=== PATIENT | female | born 1960 | race Caucasian/White ===

== ENCOUNTER 2017-02-21 08:42 | Observation (INO) ==
[2017-02-21] MEDS ORDERED: Naloxone 0.4 MG/ML INJ IVP PRN (14:10)
[2017-02-21] MEDS ORDERED: *HR* HYDROcodone/Acet 5/325 mg TABLET PO PRN (14:10)
[2017-02-21 14:26] LABS: Basophils % 0.3 %; Eosinophils % 0.7 %; Hematocrit 33.6 % (35.3-44.9); Hemoglobin 10.7 g/dL (11.5-15.4); Immature Granulocytes % 0.2 % (0-4); Lymphocytes # 2.7 K/mcL (0.6-4.6); Lymphocytes % 45.4 %; Mean Corpuscular HGB Conc 31.8 g/dL (31.6-35.5); Mean Corpuscular Hemoglobin 31.5 pg (28.0-33.3); Mean Corpuscular Volume 98.8 fL (83.0-100.0); Mean Platelet Volume 8.7 fL (9.4-12.4); Monocytes # 0.6 K/mcL (0.0-1.3); Monocytes % 10.2 %; Neutrophils # 2.6 K/mcL (1.6-8.9); Platelet Count 274 K/mcL (140-400); Red Cell Distribution Width 13.5 % (11.5-14.5); Segmented Neutrophils % 43.2 %
[2017-02-21] MEDS ORDERED: *HR* Adenosine 6 MG/2 ML VIAL IVP PRN (14:33)
--- NOTE | 2017-02-21 14:42 | Internal Med History&Physical ---
Date of Encounter: 02/21/17 Time of Encounter: 13:00 Assessment and Plan (1) SVT (supraventricular tachycardia) Current visit: Yes Status: Acute Acute on chronic SVTs. Pt. reports incidence x4 yesterday followed by incident at 5:20 a.m. this morning. Took 1/2 digoxin which pt. states did not help. Went to [facility] and given adenosine which resolved sx. Pt. d/t have ablation at [facility] on Wednesday w/Dr. Duque. Cardiology consult ordered and discussed w/Dr. Santana w/recommendation to continue pts. digoxin and add adenosine PRN. I appreciate the consult. Continuous cardiac telemetry. Troponins to be trended. Monitor pt. and f/u labs. Pt. discussed w/Dr. De La Vega who is in agreement w/plan of care. Pt. is at high risk for cardiac event d/t SVTs and risk factors of current tobacco abuse. Observation. (2) Cough with fever Current visit: Yes Status: Acute Acute cough for the past week. Pt. reports fever of 99.7F at [facility] this morning. Pt. reports yellow sputum production. 2-View CXR ordered. Will continue pts. amoxicillin from previous bronchitis dx. Sputum culture. RVP ordered. Rapid influenza A&B ordered. If flu +, then will administer Tamiflu. Monitor pt. and f/u labs. (3) Fibromyalgia Current visit: Yes Status: Chronic Hx of chronic fibromyalgia. Stair-step pain medications for pain mgmt. (4) History of meningioma of the brain Current visit: Yes Status: Chronic Hx of chronic meningioma of the brain. MRI of the brain and internal auditory canals with and without contrast on 01/18/17 showed homogenously enhancing mass in the right cerebellopontine angle. This was described in history for this examination however there are no images for comparison. This may represent a meningioma. However given the slight extension into the internal auditory canal , an acoustic neuroma as possible. Pt. reports she will f/u w/brain surgeon regarding dx but wants to resolve SVTs first. (5) Thyroid disease Current visit: Yes Status: Chronic Hx of chronic thyroid disease. TSH and Free T4 thyroxine ordered. Continue patient's Synthroid. (6) DVT prophylaxis Current visit: Yes Status: Acute Bilateral SCDs on pts. LEs for DVT prophylaxis d/t planned ablation procedure. Internal Medicine - H&P: HPI Chief complaint: Supraventricular tachycardia Admitted From: Hospital to Hospital Transfer Plans for Post Hospital Care: Home History of present illness: Ms. Nunez is a 57 year old female with medical hx of fibromyalgia, thyroid disease, and meningioma of the brain presents from [facility] with chief complaint of supraventricular tachycardia the patient reports having 4 episodes yesterday and another one this morning at 5:20 AM. Patient reports she took 1/2 digoxin which did not help. Patient is scheduled to have ablation on Wednesday with Dr. Duque at [facility]. Patient reports fever of 99.7F today at [place] and cough for the past week. Pt. also reports dizziness for the past month which she states is either d/t her hypotension or meningioma of the brain. Pt. reports fever, cough, SOB, and heart palpitations but denies recent illness, chills, nausea, vomiting, changes in vision, chest pain, headache, unusual bleeding, abdominal pain, diarrhea, constipation pre-syncope, or syncope. Past Med Surg Social Fam HX - Past Medical History Source: patient, old records reviewed, obtained from family Medical history: fibromyalgia, other (Meningioma of the brain) Psychiatric history: no psych history - Social History Smoking Status: Current every day smoker Packs per day: 1/2 - 1 PPD Alcohol use: none Drug use: none Current living situation: Home, With Family Activity Level: Independent ambulation Recent Out of Country Travel Within the Last 8 Weeks: No Exposure or Possible Exposure to Illness During Travel: No - Family History Father Race: Family Member Ethnicity: Non- Living Status: Still Living Hx Family Medical Disorders: No Mother Race: Family Member Ethnicity: Non- Living Status: Still Living Hx Family Medical Disorders: No Brother Race: Family Member Ethnicity: Non- Living Status: Still Living Hx Family Medical Disorders: No Grandmother Race: Family Member Ethnicity: Non- Living Status: Cause of : Lung cancer Hx Family Cardiac Disorders: Yes ([place]) Hx Family Cancer: Yes (Lung) Grandfather Race: Family Member Ethnicity: Non- Living Status: Cause of : Lung cancer Hx Family Cardiac Disorders: Yes ([place]) Hx Family Cancer: Yes (Lung) Internal Medicine - H&P: Meds Amoxicillin [Amoxil] 500 mg PO QID 02/21/17 [History] Digoxin [Lanoxin] 0.1875 mg PO DAILY 02/21/17 [History] Fluticasone Propionate Nasal [Flonase] 50 mcg NS DAILY 02/21/17 [History] Levothyroxine Sodium [Levo-T] 50 mcg PO DAILY 02/21/17 [History] 3 Allergy/AdvReac Type Severity Reaction Status Date / Time Amoxicillin [From Augmentin] Allergy Unknown See Verified 02/21/17 14:09 Comments cefuroxime [From Ceftin] Allergy Unknown See Verified 02/21/17 14:09 Comments clavulanic acid Allergy Unknown See Verified 02/21/17 14:09 [From Augmentin] Comments ibuprofen [From Motrin] Allergy Unknown See Verified 02/21/17 14:09 Comments moxifloxacin [From Avelox] Allergy Unknown See Verified 02/21/17 14:09 Comments chlordiazepoxide Allergy Difficulty Verified 01/18/17 19:52 [From Librium] Breathing epinephrine Allergy Palpitation Verified 01/18/17 19:52 s All Systems PM: A 10-system review of systems was performed and is negative for pertinent findings except as documented above in the HPI. - Constitutional Constitutional: as per HPI, fever(s) (99.7F at [facility] today), no chills, no night sweats - EENT Eyes: no change in vision, no discharge, no pain, no photophobia Ears: no ear discharge, no ear pain, no tinnitus Nose, mouth and throat: no dysphagia, no nasal discharge, no neck pain, no sore throat - Breasts Breasts: as per HPI - Cardiovascular Cardiovascular ROS IM: as per HPI, dyspnea, palpitations - Respiratory Respiratory: as per HPI, cough, dyspnea, change in phlegm color (Yellow), no wheezing, no excessive phlegm production - Gastrointestinal Gastrointestinal: no abdominal pain, no diarrhea, no hematemesis, no hematochezia, no melena, no nausea, no vomiting - Genitourinary Genitourinary: no change in urinary stream, no dysuria, no flank pain, no hematuria Menstruation: as per HPI - Musculoskeletal Musculoskeletal ROS IM: as per HPI, myalgias - Integumentary Integumentary IM: no rash, no unusual bruising - Neurological Neurological ROS: no confusion, no convulsions, no focal weakness, no numbness, no tingling, no tremor(s) - Psychiatric Psychiatric: as per HPI - Endocrine Endocrine IM: as per HPI - Hematologic/Lymphatic Hematologic/Lymphatic: no easy bruising - Allergic/Immunologic Allergic/Immunologic: as per HPI - Constitutional Vitals: Temp Pulse Resp BP Pulse Ox 97.9 F 81 16 99/64 99 02/21/17 11:22 02/21/17 11:22 02/21/17 11:22 02/21/17 11:22 02/21/17 11:22 General appearance: Present: cooperative, mild distress (D/t coughing), A&O X 3 , pleasant, answers questions appropriately - Head Head exam: Present: atraumatic, normocephalic - Eye Eye exam: Present: PERRL, conjuntiva pink, sclera anicteric Pupils: Present: PERRL - ENT ENT exam: Present: normal exam - Neck Neck exam general surgery: Present: normal inspection, supple, trachea midline. Absent: lymphadenopathy - Respiratory Respiratory exam: Present: CTAB. Absent: accessory muscle use, rales, rhonchi, wheezes - Cardiovascular Cardiovascular exam: Present: RRR, +S1, +S2. Absent: diastolic murmur, gallop, rubs, systolic murmur - GI/Abdominal GI/Abdominal exam: Present: normal bowel sounds, soft, no peritoneal signs. Absent: distended, tenderness - Rectal Rectal exam: Present: deferred - Additional comments: exam deferred. - Extremities Exam Extremities exam: Present: warm, radial pulses palpable and symmetrical. Absent : calf tenderness, cyanotic, pedal edema - Back Exam Back exam: Present: normal inspection - Neurological Exam Neurological exam: Present: CN II-XII intact, oriented X3, no focal deficits. Absent: pronater drift, facial droop, speech deficit - Psychiatric Psychiatric exam: Present: normal affect, normal mood - Skin Skin exam: Present: dry, intact Internal Med - H&P Results - Labs CBC & Chem 7: 02/21/17 14:18 Labs: Short CBC 02/21/17 Range/Units 14:18 WBC 5.9 (4.3-11.1) K/mcL Hgb 10.7 L (11.5-15.4) g/dL Hct 33.6 L (35.3-44.9) % Plt Count 274 (140-400) K/mcL Neutrophils # 2.6 (1.6-8.9) K/mcL - EKG Data EKG shows normal: sinus rhythm - EKG Data Prior EKG available for review: yes EKG comments: 02/21/17 14:48 EKG dated 02/21/17 06:52 at [facility] today shows supraventricular tachycardia and marked ST abnormality, possible inferior subendocardial injury. EKG dated 02/21/17 08:35 at [facility] today shows sinus rhythm with fusion complexes.
[2017-02-21 14:46] LABS: Alanine Aminotransferase 17 Units/L (7-52); Albumin 3.7 g/dL (3.5-5.7); Albumin/Globulin Ratio 1.8 (1.1-2.2); Alkaline Phosphatase 49 Units/L (34-104); Aspartate Amino Transferase 20 Units/L (13-39); BUN/Creatinine Ratio 14 (6-26); Bilirubin,Total 0.3 mg/dL (0.3-1.0); Blood Urea Nitrogen 8 mg/dL (6-20); Calcium 8.6 mg/dL (8.6-10.3); Carbon Dioxide 26 mEq/L (23-29); Chloride 110 mEq/L (98-107); Globulin 2.1 g/dL (2.4-3.5); Glucose 92 mg/dL (70-105); Osmolality,Calculated 288 (280-300); Sodium 140 mEq/L (136-145); Total Protein 5.8 g/dL (6.4-8.9); eGFR For African Americans > 60 (> 60); eGFR For Non-African Americans > 60 (> 60)
[2017-02-21 14:59] LABS: Thyroid Stimulating Hormone 1.092 mcIU/mL (0.340-5.600)
[2017-02-21] MEDS: Acetaminophen 325 MG TABLET PO PRN (15:37)
[2017-02-21] MEDS: Amoxicillin 500 MG CAPSULE PO SCH ×2 (15:37→20:47)
--- NOTE | 2017-02-21 16:05 | Event Note ---
Date of Encounter: 02/21/17 Time of Encounter: 16:03 Patient seen and examined.Recurrent SVT resolved with adensine. Takend off her Cartia in December in anticipation for ablation. Plan for abation procedure on Wednesday after tomorrow. Can give adenosine as need for SVT in hospital. K 4, will check Mg. 2 sets of troponin, check TSH
[2017-02-21] MEDS ORDERED: 0.9 % Sodium Chloride 1,000 ML ONE (16:33)
[2017-02-22 02:59] LABS: Hematocrit 33.6 % (35.3-44.9); Hemoglobin 10.8 g/dL (11.5-15.4); Mean Corpuscular HGB Conc 32.1 g/dL (31.6-35.5); Mean Corpuscular Hemoglobin 31.5 pg (28.0-33.3); Mean Platelet Volume 8.7 fL (9.4-12.4); Platelet Count 264 K/mcL (140-400); Red Blood Count 3.43 M/mcL (3.82-4.97); Red Cell Distribution Width 13.7 % (11.5-14.5)
[2017-02-22 03:04] LABS: Hemoglobin A1C 5.3 %
[2017-02-22 03:09] LABS: Alanine Aminotransferase 19 Units/L (7-52); Albumin 3.8 g/dL (3.5-5.7); Albumin/Globulin Ratio 1.8 (1.1-2.2); Alkaline Phosphatase 46 Units/L (34-104); Aspartate Amino Transferase 20 Units/L (13-39); BUN/Creatinine Ratio 16 (6-26); Bilirubin,Total 0.4 mg/dL (0.3-1.0); Blood Urea Nitrogen 8 mg/dL (6-20); Calcium 8.8 mg/dL (8.6-10.3); Carbon Dioxide 27 mEq/L (23-29); Chloride 111 mEq/L (98-107); Chol/HDL Ratio 3.3 (0-4.9); Cholesterol 159 mg/dL (< 200); Globulin 2.1 g/dL (2.4-3.5); Glucose 91 mg/dL (70-105); HDL Cholesterol 48 mg/dL (40-59); LDL Cholesterol,Calculated 94 mg/dL (0-99); Magnesium 2.1 mg/dL (1.6-2.6); Osmolality,Calculated 288 (280-300); Potassium 4.1 mEq/L (3.5-5.1); Sodium 140 mEq/L (136-145); Total Protein 5.9 g/dL (6.4-8.9); Triglycerides 87 mg/dL (< 150); eGFR For African Americans > 60 (> 60); eGFR For Non-African Americans > 60 (> 60)
[2017-02-22] MEDS: 0.9 % Sodium Chloride 1,000 ML IVC SCH ×2 (04:10→08:34)
[2017-02-22] MEDS: Amoxicillin 500 MG CAPSULE PO SCH ×3 (08:32→16:50)
[2017-02-22] MEDS: Acetaminophen 325 MG TABLET PO PRN ×2 (08:32→19:37)
[2017-02-22] MEDS ORDERED: *HR* Digoxin 0.125 MG TABLET PO SCH (09:00)
--- NOTE | 2017-02-22 09:35 | Electrophysiology Consult Note ---
<Ellie Palacio [place] - Last Filed: 02/22/17 10:43> Date of Encounter: 02/22/17 Time of Encounter: 08:00 Assessment and Plan (1) SVT (supraventricular tachycardia) Current Visit: Yes Status: Acute Successful conversion from SVT to SR after IV adenosine given at [facility]. No recurrence since admission per telemetry review. NPO after MN except medications. Plan for SVT ablation tomorrow with Dr. Jovi Duque as previously scheduled. Continue digoxin and prn adenosine. Discussion w patient/family: The assessment and plan as outlined above was discussed with the patient and/or family members who expressed understanding and agreement. All questions were answered. Thank you for involving us in the care of your patient. Please call with any questions. The patient will be discussed and reviewed with Dr. Jovi Duque, changes to be made accordingly. History of Present Illness Consult date: 02/23/16 Requesting physician: Jb De La Vega Consult reason: SVT Chief complaint: SVT attack History of present illness: Ms. Nunez is a 57 year old female with PMHx significant for SVT and thyroid disease who presented to [facility] yesterday morning with complaints of "SVT attack." Patient reports she first noticed symptoms--palpitations, racing heart around 5:30 AM, tachycardia continued to persist despite vagal maneuvers, carotid massage, and 1/2 digoxin dose and therefore presented to the ED. Of note , she has outpatient SVT ablation scheduled for 02/23/17 and was directed to discontinue home cardizem in December. She was given IV adenosine push for SVT (HR 197 per ECG) at [facility] and then transferred to [facility]. Patient was started on oral amoxicillin 1 week ago for cough, had low grade temp at [facility], 99.7. Has been afebrile for >24 hours. Past Med Surg Social Fam HX - Past Medical History Attestation: Yes The following information was validated with the patient. Source: patient Medical history: fibromyalgia, SVT, thyroid disease, other (Meningioma of the brain) Psychiatric history: no psych history - Social History Smoking Status: Current every day smoker Packs per day: 1/2 - 1 PPD Alcohol use: none Drug use: none - Family History Father Race: Family Member Ethnicity: Non- Living Status: Still Living Hx Family Medical Disorders: No Mother Race: Family Member Ethnicity: Non- Living Status: Still Living Hx Family Medical Disorders: No Brother Race: Family Member Ethnicity: Non- Living Status: Still Living Hx Family Medical Disorders: No Grandmother Race: Family Member Ethnicity: Non- Living Status: Cause of : Lung cancer Hx Family Cardiac Disorders: Yes ([place]) Hx Family Cancer: Yes (Lung) Grandfather Race: Family Member Ethnicity: Non- Living Status: Cause of : Lung cancer Hx Family Cardiac Disorders: Yes ([place]) Hx Family Cancer: Yes (Lung) Medications and Allergies Amoxicillin [Amoxil] 500 mg PO QID 02/21/17 [History] Digoxin [Lanoxin] 0.1875 mg PO DAILY 02/21/17 [History] Fluticasone Propionate Nasal [Flonase] 50 mcg NS DAILY 02/21/17 [History] Levothyroxine Sodium [Levo-T] 50 mcg PO DAILY 02/21/17 [History] 3 Allergy/AdvReac Type Severity Reaction Status Date / Time cefuroxime [From Ceftin] Allergy Unknown See Verified 02/21/17 14:09 Comments clavulanic acid Allergy Unknown See Verified 02/21/17 14:09 [From Augmentin] Comments ibuprofen [From Motrin] Allergy Unknown See Verified 02/21/17 14:09 Comments moxifloxacin [From Avelox] Allergy Unknown See Verified 02/21/17 14:09 Comments chlordiazepoxide Allergy Difficulty Verified 01/18/17 19:52 [From Librium] Breathing epinephrine Allergy Palpitation Verified 01/18/17 19:52 s All Systems Review: A 10-system review of systems was performed and is negative for pertinent findings except as documented above in the HPI. - Cardiovascular Cardiovascular: as per HPI Physical Examination Vital Signs, Last 4 Hours Temp Pulse Resp BP Pulse Ox 02/22/17 07:25 97.4 F L 86 16 101/65 95 General: Conversant, No Apparent Distress HEENT: Atraumatic, Normocephaly, Mucus Membranes Moist Neck: No JVD Cardiac: Reg Rate and Rhythm, Normal S1 and S2 Lungs: Normal Breath Sounds Neuro: Alert and responsive Abdomen: Soft Skin: No rashes noted on visualized skin Musculoskeletal: No Chest Wall Tenderness Extremities: No Edema, Normal Pulses Results 02/22/17 02:47 02/22/17 02:47 Lab Results 02/21/17 02/21/17 02/21/17 14:18 14:18 14:18 WBC 5.9 Hgb 10.7 L Hct 33.6 L Plt Count 274 Sodium 140 Potassium 4.0 Chloride 110 H Carbon Dioxide 26 BUN 8 Creatinine 0.56 L Glucose 92 Calcium 8.6 Magnesium Total Bilirubin 0.3 AST 20 ALT 17 Alkaline Phosphatase 49 Troponin I < 0.03 TSH 1.092 02/21/17 02/21/17 02/22/17 14:18 20:32 02:47 WBC Hgb Hct Plt Count Sodium Potassium Chloride Carbon Dioxide BUN Creatinine Glucose Calcium Magnesium 2.0 Total Bilirubin AST ALT Alkaline Phosphatase Troponin I < 0.03 < 0.03 TSH 02/22/17 02/22/17 02:47 02:47 WBC 6.2 Hgb 10.8 L Hct 33.6 L Plt Count 264 Sodium 140 Potassium 4.1 Chloride 111 H Carbon Dioxide 27 BUN 8 Creatinine 0.49 L Glucose 91 Calcium 8.8 Magnesium 2.1 Total Bilirubin 0.4 AST 20 ALT 19 Alkaline Phosphatase 46 Troponin I TSH Active Medications Acetaminophen (Tylenol) 650 mg PO Q6H PRN PRN Reason: Mild Pain (1-3) Stop: 08/23/17 14:11 Last Admin: 02/22/17 08:32 Dose: 650 mg Hydrocodone Bitart/Acetaminophen ([place] 5-325 Mg) 1 tab PO Q4H PRN PRN Reason: Moderate Pain (4-6) Stop: 08/23/17 14:11 Adenosine (Adenocard) 6 mg IVP ONCE PRN PRN Reason: Tachyarrhythmias Stop: 08/23/17 14:34 Amoxicillin (Amoxil) 500 mg PO QID [facility] PRN Reason: Protocol Stop: 08/23/17 17:01 Last Admin: 02/22/17 08:32 Dose: 500 mg Digoxin (Lanoxin) 0.1875 mg PO DAILY [facility] Stop: 08/24/17 09:01 Last Admin: 02/22/17 08:32 Dose: Not Given Fluticasone Propionate (Flonase) 50 mcg NS DAILY [facility] PRN Reason: Protocol Stop: 08/24/17 09:01 Sodium Chloride (0.9 % Sodium Chloride) 1,000 mls @ 60 mls/hr IVC .[id number] [facility] Stop: 08/23/17 17:01 Last Admin: 02/22/17 08:34 Dose: 60 mls/hr Levothyroxine Sodium (Synthroid) 50 mcg PO DAILY@0630 [facility] Stop: 08/25/17 06:31 Naloxone HCl (Narcan) 0.4 mg IVP Q2MIN PRN PRN Reason: Opioid Reversal Stop: 08/23/17 14:11 - Imaging and Cardiology Other Results: 12 hour tele: avg HR=88 SR. NO SVT noted. - EKG Interpretation EKG results cardiology: personally reviewed Consult Discharge Plan - Plan Referrals: Viktoriya John, COMMUNICATIONS ELECTRICIAN SUPERVISOR [Primary Care Provider] - <Jovi Duque - Last Filed: 02/22/17 12:56> Date of Encounter: 02/22/17 - Attending Attestation I have personally performed a face to face evaluation on this patient. I have reviewed and agree with the care plan. History and Exam by me shows: Recurrent SVT, proceed with EPS/ Ablation as scheduled tomorrow. Assessment and Plan Discussion w patient/family: The assessment and plan as outlined above was discussed with the patient and/or family members who expressed understanding and agreement. All questions were answered. Thank you for involving us in the care of your patient. Please call with any questions. History of Present Illness History of present illness: Ms. Nunez is a 57 year old female All Systems Review: A 10-system review of systems was performed and is negative for pertinent findings except as documented above in the HPI. Physical Examination Vital Signs, Last 4 Hours Temp Pulse Resp BP Pulse Ox 02/22/17 11:18 98.1 F 93 17 94/51 94 Results 02/22/17 02:47 02/22/17 02:47 Lab Results 02/21/17 02/21/17 02/21/17 14:18 14:18 14:18 WBC 5.9 Hgb 10.7 L Hct 33.6 L Plt Count 274 Sodium 140 Potassium 4.0 Chloride 110 H Carbon Dioxide 26 BUN 8 Creatinine 0.56 L Glucose 92 Calcium 8.6 Magnesium Total Bilirubin 0.3 AST 20 ALT 17 Alkaline Phosphatase 49 Troponin I < 0.03 TSH 1.092 02/21/17 02/21/17 02/22/17 14:18 20:32 02:47 WBC Hgb Hct Plt Count Sodium Potassium Chloride Carbon Dioxide BUN Creatinine Glucose Calcium Magnesium 2.0 Total Bilirubin AST ALT Alkaline Phosphatase Troponin I < 0.03 < 0.03 TSH 02/22/17 02/22/17 02:47 02:47 WBC 6.2 Hgb 10.8 L Hct 33.6 L Plt Count 264 Sodium 140 Potassium 4.1 Chloride 111 H Carbon Dioxide 27 BUN 8 Creatinine 0.49 L Glucose 91 Calcium 8.8 Magnesium 2.1 Total Bilirubin 0.4 AST 20 ALT 19 Alkaline Phosphatase 46 Troponin I TSH
[2017-02-22] MEDS: Fluticasone Propionate Nasal 50 MCG/SPRAY BOTTLE NS SCH (14:09)
[2017-02-22] MEDS ORDERED: Amoxicillin 500 MG CAPSULE PO SCH (15:00)
--- NOTE | 2017-02-22 18:07 | Internal Med Progress Note ---
Date of Encounter: 02/22/17 Time of Encounter: 18:07 - Assessment and plan (1) SVT (supraventricular tachycardia) Current Visit: Yes Status: Acute Assessment and plan: Known to have SVT. Scheduled for ablation procedure tomorrow with Dr. Jovi Duque We will follow the recommendation from Dr. Jovi Duque (2) Fibromyalgia Current Visit: Yes Status: Chronic Assessment and plan: stable (3) Thyroid disease Current Visit: Yes Status: Chronic Assessment and plan: stable (4) DVT prophylaxis Current Visit: Yes Status: Acute - Subjective Interval history: Patient seen and examined. Chart reviewed. patient is comfortably lying in bed. Patient denies any palpitations, chest pain, nausea, vomiting, dizziness or diarrhea. - Constitutional Vitals: Temp Pulse Resp BP Pulse Ox 98.3 F 85 16 99/55 97 02/22/17 15:56 02/22/17 15:56 02/22/17 15:56 02/22/17 15:56 02/22/17 15:56 General appearance: Present: cooperative, mild distress (D/t coughing), A&O X 3 , pleasant, answers questions appropriately - Head Head exam: Present: atraumatic, normocephalic - Eye Eye exam: Present: PERRL, conjuntiva pink, sclera anicteric Pupils: Present: PERRL - Neck Neck exam general surgery: Present: supple, trachea midline. Absent: lymphadenopathy - Respiratory Respiratory exam: Present: CTAB. Absent: accessory muscle use, rales, rhonchi, wheezes - Cardiovascular Cardiovascular exam: Present: RRR, +S1, +S2. Absent: diastolic murmur, gallop, rubs, systolic murmur - GI/Abdominal GI/Abdominal exam: Present: normal bowel sounds, soft, no peritoneal signs. Absent: distended, tenderness - Extremities Exam Extremities exam: Present: warm, radial pulses palpable and symmetrical. Absent : calf tenderness, cyanotic, pedal edema - Neurological Exam Neurological exam: Present: CN II-XII intact, oriented X3, no focal deficits. Absent: pronater drift, facial droop, speech deficit - Skin Skin exam: Present: dry, intact Internal Medicine: Result - Labs CBC & Chem 7: 02/22/17 02:47 02/22/17 02:47 Labs: Short CBC 02/22/17 Range/Units 02:47 WBC 6.2 (4.3-11.1) K/mcL Hgb 10.8 L (11.5-15.4) g/dL Hct 33.6 L (35.3-44.9) % Plt Count 264 (140-400) K/mcL BMP 02/22/17 02:47 Sodium 140 Potassium 4.1 Chloride 111 H Carbon Dioxide 27 BUN 8 Creatinine 0.49 L Glucose 91 Calcium 8.8 Cardiac Enzymes 02/21/17 02/21/17 02/22/17 Range/Units 14:18 20:32 02:47 Troponin I < 0.03 < 0.03 < 0.03 (< 0.04) ng/mL Liver Function 02/22/17 Range/Units 02:47 Total Bilirubin 0.4 (0.3-1.0) mg/dL AST 20 (13-39) Units/L ALT 19 (7-52) Units/L Alkaline Phosphatase 46 (34-104) Units/L Albumin 3.8 (3.5-5.7) g/dL Consult Discharge Plan - Plan Referrals: Viktoriya John, FUNERAL PRE ARRANGEMENT COUNSELOR [Primary Care Provider] -
[2017-02-23 07:11] LABS: Hemoglobin 10.7 g/dL (11.5-15.4); Mean Corpuscular HGB Conc 32.4 g/dL (31.6-35.5); Mean Corpuscular Hemoglobin 31.8 pg (28.0-33.3); Mean Corpuscular Volume 98.2 fL (83.0-100.0); Platelet Count 280 K/mcL (140-400); Red Blood Count 3.36 M/mcL (3.82-4.97); Red Cell Distribution Width 13.2 % (11.5-14.5)
[2017-02-23] MEDS: Amoxicillin 500 MG CAPSULE PO SCH ×2 (07:53→16:35)
[2017-02-23] MEDS: Fluticasone Propionate Nasal 50 MCG/SPRAY BOTTLE NS SCH (07:55)
[2017-02-23] MEDS: Acetaminophen 325 MG TABLET PO PRN ×2 (07:55→16:35)
--- NOTE | 2017-02-23 09:01 | Event Note ---
Date of Encounter: 02/23/17 Time of Encounter: 09:00 - Cardiology Event Note Laboratory Tests 02/21/17 02/21/17 02/21/17 14:18 14:18 20:32 Potassium Magnesium Troponin I < 0.03 < 0.03 TSH 1.092 02/22/17 02/22/17 02:47 02:47 Potassium 4.1 Magnesium 2.1 Troponin I < 0.03 TSH Active Medications Acetaminophen (Tylenol) 650 mg PO Q6H PRN PRN Reason: Mild Pain (1-3) Stop: 08/23/17 14:11 Last Admin: 02/23/17 07:55 Dose: 650 mg Hydrocodone Bitart/Acetaminophen ([place] 5-325 Mg) 1 tab PO Q4H PRN PRN Reason: Moderate Pain (4-6) Stop: 08/23/17 14:11 Adenosine (Adenocard) 6 mg IVP ONCE PRN PRN Reason: Tachyarrhythmias Stop: 08/23/17 14:34 Amoxicillin (Amoxil) 500 mg PO TIDWM [facility] PRN Reason: Protocol Stop: 02/26/17 12:01 Last Admin: 02/23/17 07:53 Dose: Not Given Fluticasone Propionate (Flonase) 50 mcg NS DAILY [facility] PRN Reason: Protocol Stop: 08/24/17 09:01 Last Admin: 02/23/17 07:55 Dose: 50 mcg Levothyroxine Sodium (Synthroid) 50 mcg PO DAILY@0630 [facility] Stop: 08/25/17 06:31 Last Admin: 02/23/17 05:54 Dose: 50 mcg Naloxone HCl (Narcan) 0.4 mg IVP Q2MIN PRN PRN Reason: Opioid Reversal Stop: 08/23/17 14:11 Telemetry reviewed with average heart rate 81, no recurrent SVT noted. For SVT ablation today. All questions answered.
[2017-02-23 09:45] LABS: Alanine Aminotransferase 15 Units/L (7-52); Albumin 3.5 g/dL (3.5-5.7); Albumin/Globulin Ratio 1.7 (1.1-2.2); Alkaline Phosphatase 52 Units/L (34-104); Aspartate Amino Transferase 16 Units/L (13-39); BUN/Creatinine Ratio 23 (6-26); Bilirubin,Total 0.2 mg/dL (0.3-1.0); Blood Urea Nitrogen 10 mg/dL (6-20); Calcium 8.5 mg/dL (8.6-10.3); Carbon Dioxide 24 mEq/L (23-29); Chloride 111 mEq/L (98-107); Globulin 2.1 g/dL (2.4-3.5); Glucose 95 mg/dL (70-105); Osmolality,Calculated 291 (280-300); Sodium 141 mEq/L (136-145); Total Protein 5.6 g/dL (6.4-8.9); eGFR For African Americans > 60 (> 60); eGFR For Non-African Americans > 60 (> 60)
[2017-02-23] MEDS ORDERED: Heparin 1,000 UNITS/500 mL 500 ML ONE (12:45)
[2017-02-23] MEDS ORDERED: *HR* FentaNYL (PF) 100 MCG/2 ML VIAL ONE (13:36)
[2017-02-23] MEDS ORDERED: 0.9 % Sodium Chloride 1,000 ML ONE (13:37)
[2017-02-23] MEDS ORDERED: *HR* Midazolam HCl 5 MG/5 ML VIAL IVP ONE (13:37)
[2017-02-23] MEDS ORDERED: Isoproterenol HCl 1 MG/5 ML AMPUL ONE (14:41)
[2017-02-23] MEDS ORDERED: D5% in Water 250 ML ONE (14:41)
[2017-02-23] MEDS ORDERED: Naloxone 0.4 MG/ML INJ IVP PRN (15:14)
--- NOTE | 2017-02-23 16:14 | Event Note ---
Date of Encounter: 02/23/17 Time of Encounter: 16:00 - Cardiology Event Note Per discussion with Dr. Jovi Duque, s/p ablation with success. Cardiology will s/o, re-consult PRN. F/u arranged. Ok to dc this pm if post groin checks ok. All questions answered. Education provided regarding post procedure care and activity. Patient and family verbalized understanding and agreed with plan.
--- NOTE | 2017-02-23 16:15 | Internal Med Progress Note ---
<Luigi Jeffery - Last Filed: 02/23/17 16:18> Date of Encounter: 02/23/17 Time of Encounter: 16:12 - Assessment and plan (1) SVT (supraventricular tachycardia) Current Visit: Yes Status: Acute Assessment and plan: Patient undergoes SVT ablation today. Continue telemetry. Currently not on any medical therapy for SVT as it has caused hypotension in the past with syncope. (2) Cough with fever Current Visit: Yes Status: Acute Assessment and plan: Patient was started on antibiotics for symptoms of cough with fever last Wednesday. She is being treated with amoxicillin for this. She has been afebrile with normal WBC. Continue amoxicillin for total 7 days. (3) Thyroid disease Current Visit: Yes Status: Chronic Assessment and plan: stable. tsh WNL continue levothyroxine (4) DVT prophylaxis Current Visit: Yes Status: Acute Assessment and plan: Heparin subcutaneous - Subjective Interval history: Patient denies any overnight acute events. Continues to have cough, yellow sputum. Reports mild headache and sinus congestion. She denies chest pain, palpitations, shortness of breath, abdominal pain, nausea, lower extremity swelling, extremity pain. - Constitutional Vitals: Temp Pulse Resp BP Pulse Ox 98.0 F 75 17 95/85 97 02/23/17 12:01 02/23/17 12:01 02/23/17 12:01 02/23/17 12:01 02/23/17 12:01 General appearance: Present: cooperative, mild distress (D/t coughing), A&O X 3 , pleasant, answers questions appropriately - Head Head exam: Present: atraumatic, normocephalic - Eye Eye exam: Present: PERRL, conjuntiva pink, sclera anicteric - Neck Neck exam general surgery: Present: supple, trachea midline. Absent: lymphadenopathy - Respiratory Respiratory exam: Present: CTAB. Absent: accessory muscle use, rales, rhonchi, wheezes - Cardiovascular Cardiovascular exam: Present: RRR, +S1, +S2. Absent: diastolic murmur, gallop, rubs, systolic murmur - GI/Abdominal GI/Abdominal exam: Present: normal bowel sounds, soft, no peritoneal signs. Absent: distended, tenderness - Extremities Exam Extremities exam: Present: warm, radial pulses palpable and symmetrical. Absent : calf tenderness, cyanotic, pedal edema - Neurological Exam Neurological exam: Present: CN II-XII intact, oriented X3, no focal deficits. Absent: pronater drift, facial droop, speech deficit - Skin Skin exam: Present: dry, intact Internal Medicine: Result - Labs CBC & Chem 7: 02/23/17 06:32 02/23/17 06:32 Labs: Short CBC 02/23/17 Range/Units 06:32 WBC 6.4 (4.3-11.1) K/mcL Hgb 10.7 L (11.5-15.4) g/dL Hct 33.0 L (35.3-44.9) % Plt Count 280 (140-400) K/mcL BMP 02/23/17 06:32 Sodium 141 Potassium 4.0 Chloride 111 H Carbon Dioxide 24 BUN 10 Creatinine 0.44 L Glucose 95 Calcium 8.5 L Liver Function 02/23/17 Range/Units 06:32 Total Bilirubin 0.2 L (0.3-1.0) mg/dL AST 16 (13-39) Units/L ALT 15 (7-52) Units/L Alkaline Phosphatase 52 (34-104) Units/L Albumin 3.5 (3.5-5.7) g/dL Consult Discharge Plan - Plan Referrals: Viktoriya John, [facility] [Primary Care Provider] - <Ruy Puri - Last Filed: 02/23/17 16:44> Date of Encounter: 02/23/17 - Constitutional Vitals: Temp Pulse Resp BP Pulse Ox 98.0 F 75 17 95/85 97 02/23/17 12:01 02/23/17 12:01 02/23/17 12:01 02/23/17 12:01 02/23/17 12:01 Internal Medicine: Result - Labs CBC & Chem 7: 02/23/17 06:32 02/23/17 06:32 Labs: Short CBC 02/23/17 Range/Units 06:32 WBC 6.4 (4.3-11.1) K/mcL Hgb 10.7 L (11.5-15.4) g/dL Hct 33.0 L (35.3-44.9) % Plt Count 280 (140-400) K/mcL BMP 02/23/17 06:32 Sodium 141 Potassium 4.0 Chloride 111 H Carbon Dioxide 24 BUN 10 Creatinine 0.44 L Glucose 95 Calcium 8.5 L Liver Function 02/23/17 Range/Units 06:32 Total Bilirubin 0.2 L (0.3-1.0) mg/dL AST 16 (13-39) Units/L ALT 15 (7-52) Units/L Alkaline Phosphatase 52 (34-104) Units/L Albumin 3.5 (3.5-5.7) g/dL - Attending Attestation I examined this patient and my medical decision-making was reviewed with the Resident Physician on 02/23/17. I agree with the documented findings, disposition and treatment plan as described except to the extent set forth below. 57 F with Hypothyroidism, admitted to observation for ablation of SVT She is asymptomatic, no CP, no SOB No new complains Awaiting procedure Physical exam unremarkable, labs are stable Continue current care, stable to be discharged home if cardiology clears her after the procedure, ensure follow up with cardiology Rest of details as in the resident physicians documentation.
--- NOTE | 2017-02-23 16:52 | Discharge Summary ---
<Luigi Jeffery - Last Filed: 02/23/17 16:44> Date of Encounter: 02/23/17 Time of Encounter: 16:44 - Discharge Diagnosis (1) SVT (supraventricular tachycardia) Priority: Primary Status: Acute (2) Cough with fever Priority: Secondary Status: Acute (3) Thyroid disease Priority: Secondary Status: Chronic (4) DVT prophylaxis Priority: Secondary Status: Acute - Discharge Medications Home Medications: Fluticasone Propionate Nasal [Flonase] 50 mcg NS DAILY 02/21/17 [History] Levothyroxine Sodium [Levo-T] 50 mcg PO DAILY 02/21/17 [History] Amoxicillin [Amoxil] 500 mg PO QID #0 02/23/17 [Rx] Allergies/Adverse Reactions: 3 Allergy/AdvReac Type Severity Reaction Status Date / Time cefuroxime [From Ceftin] Allergy Unknown See Verified 02/21/17 14:09 Comments clavulanic acid Allergy Unknown See Verified 02/21/17 14:09 [From Augmentin] Comments ibuprofen [From Motrin] Allergy Unknown See Verified 02/21/17 14:09 Comments moxifloxacin [From Avelox] Allergy Unknown See Verified 02/21/17 14:09 Comments chlordiazepoxide Allergy Difficulty Verified 01/18/17 19:52 [From Librium] Breathing epinephrine Allergy Palpitation Verified 01/18/17 19:52 s Procedures/tests Complete & Pending: Procedures Performed prior 72 hours Category Date Time Status CL Ablation [CL] Routine City Surveyor 02/23/17 08:00 Ordered ECG 12 lead ECG [ECG] Routine Y 02/21/17 14:10 Completed Date of admission: 02/21/17 10:53 Primary care physician: JOSE Morgan Consults: 02/21/17 14:15 Consult to Physician/Internist [CONS] Routine Reason for SW Consult: Please assess patient for possible home needs for post -discharge planning. 02/21/17 14:21 Consult to Cardiology [CONS] Routine Comment: Consulting Provider: Cardiology María Reason for Consult: Patient has hx of SVTs and was seen at [facility] today for SVTs. Given adenosine which resolved sx. Pt. is scheduled to have ablation on Wednesday w/Dr. Duque. Pt. is also showing sx of possible influenza today w/cough and fever at [place] of 99.7F. Rapid influenza A&B ordered. Call Completed: Yes Discharging clinician: Chitra Jeffery Anticipated date of discharge: 02/23/17 - Patient Status Disposition: Home, Self-Care Functional capacity at discharge: independent ambulation Overall status at discharge: patient is progressing back to baseline - Discharge Instructions Instructions: Cardiac Ablation (DC) Follow Up With: Viktoriya John CNP [Primary Care Provider] - - Diet and Activity Activity: increase activity as tolerated Diet: advance to your usual diet Hospital course: Ms. Nunez is a 57 year old female with history of SVT presented as a transfer form [facility]. Patient had a SVT attack noticed symptoms of palpitations , racing heart. Heart rate was 197 on EKG At [facility] ER patient's SVT persisted after attempts of vagal maneuvers, carotid massage, one half digoxin dose. Patient was then given IV adenosine which converted her heart rate to sinus rhythm. TSH was within normal limits. Patient used to be on verapamil and then Cardizem for her SVT which was diagnosed in 1983. These were discontinued outpatient due to hypotension with syncope. Patient underwent ablation for SVT and tolerated the procedure well. Furthermore she was started on amoxicillin outpatient for cough and fever which was continued in the hospital. Rapid influenza negative. She continued to have symptoms of cough, productive sputum and sinus congestion but they have improved since last Wednesday. Patient will need to finish her antibiotic regimen with her last dose being 02/26/2017. Patient will follow-up with cardiology and PCP after discharge. She is able to ambulate independently. - Time Spent with Patient Total time spent providing and/or coordinating discharge services: - Constitutional Vitals: Temp Pulse Resp BP Pulse Ox 98.0 F 75 17 95/85 97 02/23/17 12:01 02/23/17 12:01 02/23/17 12:01 02/23/17 12:01 02/23/17 12:01 General appearance: Present: cooperative, mild distress (D/t coughing), A&O X 3 , pleasant, answers questions appropriately - Head Head exam: Present: atraumatic, normocephalic - Eye Eye exam: Present: PERRL, conjuntiva pink, sclera anicteric Pupils: Present: PERRL - Neck Neck exam general surgery: Present: supple, trachea midline. Absent: lymphadenopathy - Respiratory Respiratory exam: Present: CTAB. Absent: accessory muscle use, rales, rhonchi, wheezes - Cardiovascular Cardiovascular exam: Present: RRR, +S1, +S2. Absent: diastolic murmur, gallop, rubs, systolic murmur Additional comments: Right groin pressure dressing at catheter site. No bleeding - GI/Abdominal GI/Abdominal exam: Present: normal bowel sounds, soft, no peritoneal signs. Absent: distended, tenderness - Extremities Exam Extremities exam: Present: warm, radial pulses palpable and symmetrical. Absent : calf tenderness, cyanotic, pedal edema - Neurological Exam Neurological exam: Present: CN II-XII intact, oriented X3, no focal deficits. Absent: pronater drift, facial droop, speech deficit - Skin Skin exam: Present: dry, intact <Ruy Puri T - Last Filed: 02/23/17 17:54> Date of Encounter: 02/23/17 Procedures/tests Complete & Pending: Procedures Performed prior 72 hours Category Date Time Status CL Ablation [CL] Routine City Surveyor 02/23/17 08:00 Ordered ECG 12 lead ECG [ECG] Routine Y 02/21/17 14:10 Completed Date of admission: 02/21/17 10:53 Primary care physician: JOSE Morgan Consults: 02/21/17 14:15 Consult to Physician/Internist [CONS] Routine Reason for SW Consult: Please assess patient for possible home needs for post -discharge planning. 02/21/17 14:21 Consult to Cardiology [CONS] Routine Comment: Consulting Provider: Cardiology María Reason for Consult: Patient has hx of SVTs and was seen at [facility] today for SVTs. Given adenosine which resolved sx. Pt. is scheduled to have ablation on Wednesday w/Dr. Duque. Pt. is also showing sx of possible influenza today w/cough and fever at [place] of 99.7F. Rapid influenza A&B ordered. Call Completed: Yes Hospital course: Ms. Nunez is a 57 year old female - Time Spent with Patient Total time spent providing and/or coordinating discharge services: - Constitutional Vitals: Temp Pulse Resp BP Pulse Ox 97.7 F 65 17 102/66 98 02/23/17 17:34 02/23/17 17:34 02/23/17 17:34 02/23/17 17:34 02/23/17 17:34 - Attending Attestation Agree with plan, see progress notes of same day for my documentation
[2017-02-23 17:35] VITALS: BP 102/66
[2017-02-23] MEDS ORDERED: *HR* Heparin 5,000 UNIT/ML VIAL SQ SCH (18:00)
== END 2017-02-23 19:00 | disposition home or self-care (01) ==
LOC: 2ANU → SUATTDRO 10:53
PROVIDERS: ADMIT Hospitalist; ATTEND Internal Medicine

== ENCOUNTER 2021-08-01 17:31 | Inpatient (IN) ==
[2021-08-01] MEDS ORDERED: Perflutren Lipid Microsphere 1.3 ML in 0.9 % Sodium Chloride 8.7 ML IVP PRN (18:02)
[2021-08-01] MEDS ORDERED: *HR* Metoprolol 5 MG/5 ML VIAL IVP PRN (18:03)
[2021-08-01] MEDS ORDERED: Melatonin 3 MG TABLET PO PRN (18:04)
[2021-08-01] MEDS ORDERED: Naloxone 0.4 MG/ML INJ IVP PRN (18:04)
[2021-08-01] MEDS ORDERED: Acetaminophen 325 MG TABLET PO PRN (18:04)
[2021-08-01] MEDS: Levalbuterol Neb 1.25 MG/3 ML IH SCH ×2 (18:38→22:23)
[2021-08-01 18:39] LABS: Basophils # 0.1 K/mcL (0.0-0.2); Basophils % 0.7 %; Eosinophils # 0.1 K/mcL (0.0-0.6); Eosinophils % 1.2 %; Hematocrit 42.6 % (35.3-44.9); Hemoglobin 13.8 g/dL (11.5-15.4); Immature Granulocytes % 0.4 % (0-4); Lymphocytes # 2.6 K/mcL (0.6-4.6); Lymphocytes % 34.2 %; Mean Corpuscular HGB Conc 32.4 g/dL (31.6-35.5); Mean Corpuscular Volume 95.7 fL (83.0-100.0); Mean Platelet Volume 8.9 fL (9.4-12.4); Monocytes # 0.8 K/mcL (0.0-1.3); Monocytes % 10.1 %; Platelet Count 386 K/mcL (140-400); Red Blood Count 4.45 M/mcL (3.82-4.97); Red Cell Distribution Width 14.4 % (11.5-14.5); Segmented Neutrophils % 53.4 %; White Blood Count 7.5 K/mcL (4.3-11.1)
[2021-08-01 18:57] LABS: Alanine Aminotransferase 15 Units/L (7-52); Albumin 4.6 g/dL (3.5-5.7); Albumin/Globulin Ratio 1.6 (1.1-2.2); Alkaline Phosphatase 61 Units/L (34-104); Aspartate Amino Transferase 19 Units/L (13-39); BUN/Creatinine Ratio 16 (6-26); Bilirubin,Total 0.5 mg/dL (0.3-1.0); Blood Urea Nitrogen 12 mg/dL (8-23); Calcium 9.8 mg/dL (8.6-10.3); Carbon Dioxide 29 mEq/L (23-29); Chloride 103 mEq/L (98-107); Globulin 2.9 g/dL (2.4-3.5); Glucose 99 mg/dL (70-105); Magnesium 2.2 mg/dL (1.6-2.6); Osmolality,Calculated 286 (280-300); Potassium 4.5 mEq/L (3.5-5.1); Sodium 138 mEq/L (136-145); Total Protein 7.5 g/dL (6.4-8.9); Troponin I < 0.03 ng/mL (< 0.04); eGFR For African Americans > 60 (> 60); eGFR For Non-African Americans > 60 (> 60)
[2021-08-01 19:10] LABS: Thyroid Stimulating Hormone 3.653 mcIU/mL (0.340-5.600)
[2021-08-02 01:38] LABS: Basophils # 0.1 K/mcL (0.0-0.2); Basophils % 0.7 %; Eosinophils # 0.1 K/mcL (0.0-0.6); Eosinophils % 1.2 %; Hematocrit 38.2 % (35.3-44.9); Hemoglobin 12.4 g/dL (11.5-15.4); Immature Granulocytes % 0.1 % (0-4); Lymphocytes # 2.8 K/mcL (0.6-4.6); Lymphocytes % 38.9 %; Mean Corpuscular HGB Conc 32.5 g/dL (31.6-35.5); Mean Corpuscular Hemoglobin 30.7 pg (28.0-33.3); Mean Corpuscular Volume 94.6 fL (83.0-100.0); Monocytes # 0.8 K/mcL (0.0-1.3); Monocytes % 11.5 %; Neutrophils # 3.4 K/mcL (1.6-8.9); Platelet Count 344 K/mcL (140-400); Red Blood Count 4.04 M/mcL (3.82-4.97); Red Cell Distribution Width 14.2 % (11.5-14.5); Segmented Neutrophils % 47.6 %; White Blood Count 7.2 K/mcL (4.3-11.1)
[2021-08-02 01:45] LABS: Alanine Aminotransferase 12 Units/L (7-52); Albumin 3.9 g/dL (3.5-5.7); Albumin/Globulin Ratio 1.6 (1.1-2.2); Alkaline Phosphatase 51 Units/L (34-104); Aspartate Amino Transferase 15 Units/L (13-39); BUN/Creatinine Ratio 22 (6-26); Bilirubin,Total 0.4 mg/dL (0.3-1.0); Blood Urea Nitrogen 14 mg/dL (8-23); Calcium 9.2 mg/dL (8.6-10.3); Carbon Dioxide 26 mEq/L (23-29); Chloride 105 mEq/L (98-107); Chol/HDL Ratio 2.9 (0-4.9); Cholesterol 198 mg/dL (< 200); Globulin 2.5 g/dL (2.4-3.5); Glucose 110 mg/dL (70-105); HDL Cholesterol 69 mg/dL (40-59); LDL Cholesterol,Calculated 112 mg/dL (< 100); Osmolality,Calculated 285 (280-300); Potassium 4.2 mEq/L (3.5-5.1); Sodium 137 mEq/L (136-145); Total Protein 6.4 g/dL (6.4-8.9); Triglycerides 83 mg/dL (< 150); eGFR For African Americans > 60 (> 60); eGFR For Non-African Americans > 60 (> 60)
[2021-08-02 01:49] LABS: INR 1.1; Prothrombin Time 11.8 Seconds (9.4-12.1)
[2021-08-02] MEDS: Levalbuterol Neb 1.25 MG/3 ML IH SCH ×4 (03:52→22:52)
[2021-08-02] MEDS: *HR* Heparin 5,000 UNIT/ML VIAL SQ SCH ×2 (06:03→18:06)
[2021-08-02] MEDS: Metoprolol XL (24 HR) Succ 25 MG TAB.ER.24H PO SCH (11:33)
[2021-08-03] MEDS: Levalbuterol Neb 1.25 MG/3 ML IH SCH ×4 (04:25→22:22)
[2021-08-03] MEDS: *HR* Heparin 5,000 UNIT/ML VIAL SQ SCH ×2 (05:58→16:27)
[2021-08-03] MEDS ORDERED: Regadenoson 0.4 MG/5 ML SYRINGE IVP ONE (07:20)
[2021-08-03] MEDS: Metoprolol XL (24 HR) Succ 25 MG TAB.ER.24H PO SCH ×3 (09:55→20:17)
[2021-08-04] MEDS: Levalbuterol Neb 1.25 MG/3 ML IH SCH ×3 (04:10→15:18)
[2021-08-04] MEDS: *HR* Heparin 5,000 UNIT/ML VIAL SQ SCH (06:03)
[2021-08-04] MEDS ORDERED: Iopamidol - 370 200 ML INFUS..BTL ONE (08:11)
[2021-08-04] MEDS ORDERED: 0.9 % Sodium Chloride 2,000 ML ONE (08:11)
[2021-08-04] MEDS ORDERED: Heparin 1,000 UNITS/500 mL 500 ML ONE (08:11)
[2021-08-04] MEDS ORDERED: *HR* Heparin 10,000 UNIT/10 ML VIAL ONE (08:11)
[2021-08-04] MEDS ORDERED: Nitroglycerin 1,000 MCG/5 ML VIAL IV ONE (08:12)
[2021-08-04] MEDS ORDERED: *HR* Midazolam HCl 2 MG/2 ML VIAL ONE (08:27)
[2021-08-04] MEDS ORDERED: *HR* FentaNYL (PF) 100 MCG/2 ML VIAL ONE (08:27)
[2021-08-04 09:30] VITALS: TEMP 97.8
[2021-08-04] MEDS ORDERED: Budesonide/Formoterol 160/4.5 1 PUFF INH IH SCH (10:00)
[2021-08-04] MEDS ORDERED: 0.9 % Sodium Chloride 500 ML IVC ONE (10:40)
[2021-08-04] MEDS ORDERED: Metoprolol XL (24 HR) Succ 25 MG TAB.ER.24H PO SCH (11:12)
[2021-08-04] MEDS: Metoprolol XL (24 HR) Succ 25 MG TAB.ER.24H PO SCH (11:13)
[2021-08-04 12:49] VITALS: PULSE 70
[2021-08-04 15:09] VITALS: BP 97/60; O2SAT 95
== END 2021-08-04 17:05 | disposition home or self-care (01) | DRG 287 ==
LOC: 3BNU → SUATTDRO 17:37
PROVIDERS: ADMIT Student in an Organized Health Care Education/Training Program; ATTEND Nurse Practitioner